=== PATIENT | male | born 1990 | race Caucasian/White ===

== ENCOUNTER 2023-10-21 19:41 | Emergency (ER) | payer OTHER ==
[~2023-10-21] VITALS: Ht 175.3 cm; Wt 96.6 kg
[2023-10-21 20:14] VITALS: BP 128/84; TEMP 98
[2023-10-21] MEDS ORDERED: IBUPROFEN 400 MG TABLET ONE (21:12)
[2023-10-21] MEDS: IBUPROFEN 400 MG TABLET PO ONE (21:16)
[2023-10-21] MEDS ORDERED: IBUP-1957 PO (21:17)
[2023-10-21] MEDS ORDERED: ACET-2605 PO (21:17)
[2023-10-21 21:21] VITALS: O2SAT 99
== END 2023-10-21 22:05 | disposition home or self-care (01) ==
LOC: ER 19:43
DX: M79.642 Pain in left hand (principal); M79.641 Pain in right hand; Z79.899 Other long term (current) drug therapy; Z60.2 Problems related to living alone; W18.39XA Other fall on same level, initial encounter; Y93.89 Activity, other specified; Y92.89 Other specified places as the place of occurrence of the external cause; Y99.8 Other external cause status
CPT/HCPCS: 73130-TC

== ENCOUNTER 2023-10-25 19:04 | Emergency (ER) | payer OTHER ==
[~2023-10-25] VITALS: Ht 175.3 cm; Wt 102.1 kg
[~2023-10-25 19:04] MED LIST: ACET-2605 PO; IBUP-1957 PO
[2023-10-25] MEDS ORDERED: HYDR-4303 PO (20:50)
[2023-10-25 20:55] VITALS: BP 143/71; TEMP 98.1; O2SAT 99
== END 2023-10-25 21:12 | disposition home or self-care (01) ==
LOC: ER 19:08
DX: S22.31XA Fracture of one rib, right side, initial encounter for closed fracture (principal); Z60.2 Problems related to living alone; W18.30XA Fall on same level, unspecified, initial encounter; Y93.89 Activity, other specified; Y92.89 Other specified places as the place of occurrence of the external cause; Y99.8 Other external cause status
CPT/HCPCS: 71100-TC